=== PATIENT | female | born 2000 | race Caucasian/White ===

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

== ENCOUNTER 2022-08-11 13:34 | Emergency (ER) | payer OTHER ==
[~2022-08-11] VITALS: Ht 157.5 cm; Wt 90.7 kg
[2022-08-11] MEDS ORDERED: NS IV 1000 ML 1,000 ML IV STA (14:27)
--- NOTE | 2022-08-11 14:32 | ED General ---
General Chief Complaint: Dizziness/Syncope Stated Complaint: LIGHTHEADED | DIZZY | HEADACHE Nursing Triage Note: PT AMB TO RM 2 WITH COMPLAINT OF DIZZINESS, HEADACHE, AND PASSING OUT. STATES SHE WAS GETTING READY FOR WORK, GOT HOT, AND ACCORDING TO BOYFRIEND PASSED OUT. STATES SHE FELT NAUSEATED LAST NIGHT AND THIS MORNING. Source of Information: Patient Exam Limitations: No Limitations (ELISEO GARNICA) History of Present Illness Date Seen by Provider: Aug 11, 2022 Time Seen by Provider: 14:28 Initial Comments Patient is a 22-year-old female who presents to the ED for syncopal episode. Around 130 today she was getting ready for work, started feeling hot and breathing really fast and had a syncopal episode. She does not remember falling. According to her boyfriend who was at bedside at the time states patient collapsed on the bed. She remained "out of it" for 5 minutes. After that she was wanting water and she walked to the car. She states she has not been feeling well over the past 2 or 3 days. She also reports a right sided frontal head pain. Rates 8 out of 10. Denies worsening head pain. No history of migraines. Denies of any specific injury. Denies taking medication for headache. she states she has been feeling hot feeling shaky lightheaded. She reports body pain. Denies of any sore throat, ear pain, neck pain, fever, cough, vomiting, diarrhea, dysuria. Reports just getting off her menstrual cycle three weeks ago. Denies of any vaginal bleeding. she denies of any unilateral muscle weakness, visual changes. No history of seizures. According to her boyfriend patient appeared to be having may be a panic attack. Denies of any convulsions. She did not appear postictal. She did look pale right before she passed out. No known cardiac history or family history of sudden cardiac (ELISEO GARNICA) Allergies and Home Medications Allergies Coded Allergies: No Known Drug Allergies (Unverified , 08/13/21) Patient Home Medication List Home Medication List Reviewed: Yes (ELISEO GARNICA) Review of Systems Review of Systems Constitutional: No chills, No diaphoresis; malaise, weakness EENTM: No blurred vision, No double vision Respiratory: No cough, No dyspnea on exertion Cardiovascular: No chest pain, No edema Gastrointestinal: No abdominal pain, No diarrhea; nausea; No vomiting Genitourinary: No decreased output, No discharge, No dysuria, No frequency Musculoskeletal: No back pain, No joint pain Skin: No change in color, No change in hair/nails Psychiatric/Neurological: Headache (Headache), Other (Syncope) (ELISEO GARNICA) All Other Systems Reviewed Negative Unless Noted: Yes (ELISEO GARNICA) Past Bhsqzvl-Hbheno-Zfslvg Hx Patient Social History Tobacco Use?: No Use of E-Cig and/or Vaping dev: No Substance use?: No Alcohol Use?: No Pt feels they are or have been: No (ELISEO GARNICA) Past Medical History Surgeries: Yes (RIGHT KNEE ACL REPAIR) Orthopedic Respiratory: No Cardiac: No Neurological: No Reproductive Disorders: No Genitourinary: No Gastrointestinal: No Musculoskeletal: No Endocrine: No HEENT: No Cancer: No Psychosocial: No Integumentary: No Blood Disorders: No (ELISEO GARNICA) Physical Exam Vital Signs Vital Signs - First Documented 08/11/22 14:04 Temp 37.7 Pulse 82 Resp 24 B/P (MAP) 132/84 (100) Pulse Ox 99 O2 Delivery Room Air (LONG NGUYEN MD) Vital Signs Capillary Refill : Less Than 3 Seconds (ELISEO GARNICA) Height, Weight, BMI Height: '" Weight: lbs. oz. kg; 36.00 BMI Method: General Appearance: No Apparent Distress, WD/WN Eyes: Bilateral Eye Normal Inspection, Bilateral Eye PERRL, Bilateral Eye EOMI HEENT: PERRL/EOMI, TMs Normal, Normal ENT Inspection, Pharynx Normal Neck: Full Range of Motion, Normal Inspection, Non Tender, Supple Respiratory: Chest Non Tender, Lungs Clear, Normal Breath Sounds, No Accessory Muscle Use, No Respiratory Distress Cardiovascular: Regular Rate, Rhythm, No Edema, No Gallop, No JVD Gastrointestinal: Normal Bowel Sounds, No Organomegaly, No Pulsatile Mass, Non Tender Back: Normal Inspection, No CVA Tenderness Extremity: Normal Capillary Refill, Normal Inspection, Normal Range of Motion, Non Tender Neurologic/Psychiatric: Alert, Oriented x3, No Motor/Sensory Deficits, Normal Mood/Affect, vp medical II-XII Norm as Tested Skin: Normal Color, Warm/Dry (ELISEO GARNICA) Progress/Results/Core Measures Suspected Sepsis SIRS Temperature: Pulse: 82 Respiratory Rate: 24 Laboratory Tests 08/11/22 14:44: White Blood Count 8.2 Blood Pressure 132 /84 Mean: 100 Laboratory Tests 08/11/22 14:44: Creatinine 0.68, Platelet Count 344, Total Bilirubin 0.3 (ELISEO GARNICA) Results/Orders Lab Results Laboratory Tests Test 08/11/22 14:44 Range/Units White Blood Count 8.2 4.3-11.0 10^3/uL Red Blood Count 4.64 3.80-5.11 10^6/uL Hemoglobin 12.7 11.5-16.0 g/dL Hematocrit 38 35-52 % Mean Corpuscular Volume 83 80-99 fL Mean Corpuscular Hemoglobin 27 25-34 pg Mean Corpuscular Hemoglobin Concent 33 32-36 g/dL Red Cell Distribution Width 13.7 10.0-14.5 % Platelet Count 344 130-400 10^3/uL Mean Platelet Volume 9.5 9.0-12.2 fL Immature Granulocyte % (Auto) 0 % Neutrophils (%) (Auto) 65 42-75 % Lymphocytes (%) (Auto) 26 12-44 % Monocytes (%) (Auto) 7 0-12 % Eosinophils (%) (Auto) 2 0-10 % Basophils (%) (Auto) 0 0-10 % Neutrophils # (Auto) 5.4 1.8-7.8 10^3/uL Lymphocytes # (Auto) 2.1 1.0-4.0 10^3/uL Monocytes # (Auto) 0.6 0.0-1.0 10^3/uL Eosinophils # (Auto) 0.1 0.0-0.3 10^3/uL Basophils # (Auto) 0.0 0.0-0.1 10^3/uL Immature Granulocyte # (Auto) 0.0 0.0-0.1 10^3/uL Urine Color YELLOW Urine Clarity CLEAR Urine pH 7.0 5-9 Urine Specific [place] 1.010 L 1.016-1.022 Urine Protein NEGATIVE NEGATIVE Urine Glucose (UA) NEGATIVE NEGATIVE Urine Ketones NEGATIVE NEGATIVE Urine Nitrite NEGATIVE NEGATIVE Urine Bilirubin NEGATIVE NEGATIVE Urine Urobilinogen 0.2 < = 1.0 MG/DL Urine Leukocyte Esterase NEGATIVE NEGATIVE Urine RBC (Auto) NEGATIVE NEGATIVE Urine RBC NONE /HPF Urine WBC NONE /HPF Urine Squamous Epithelial Cells 10-25 H /HPF Urine Crystals NONE /LPF Urine Bacteria NEGATIVE /HPF Urine Casts NONE /LPF Urine Mucus NEGATIVE /LPF Urine Culture Indicated NO Urine Test POSITIVE NEGATIVE Sodium Level 135 135-145 MMOL/L Potassium Level 4.1 3.6-5.0 MMOL/L Chloride Level 106 98-107 MMOL/L Carbon Dioxide Level 22 21-32 MMOL/L Anion Gap 7 5-14 MMOL/L Blood Urea Nitrogen 9 7-18 MG/DL Creatinine 0.68 0.60-1.30 MG/DL Estimat Glomerular Filtration Rate 128 BUN/Creatinine Ratio 13 Glucose Level 98 70-105 MG/DL Calcium Level 9.3 8.5-10.1 MG/DL Corrected Calcium 9.4 8.5-10.1 MG/DL Total Bilirubin 0.3 0.1-1.0 MG/DL Aspartate Amino Transf (AST/SGOT) 12 5-34 U/L Alanine Aminotransferase (ALT/SGPT) 18 0-55 U/L Alkaline Phosphatase 65 40-136 U/L Total Protein 7.2 6.4-8.2 GM/DL Albumin 3.9 3.2-4.5 GM/DL Human Chorionic Gonadotropin, Quant [id number] H <5 MIU/ML (LONG NGUYEN MD) Medications Given in ED Current Medications Medications Dose Ordered Sig/Jewel Route Start Time Stop Time Status Last Admin Dose Admin Ketorolac Tromethamine 30 mg ONCE ONCE IVP 08/11/22 14:45 08/11/22 14:46 DC 08/11/22 15:18 30 MG (LONG NGUYEN MD) Vital Signs/I&O 08/11/22 08/11/22 08/11/22 14:04 15:36 16:10 Temp 37.7 Pulse 82 82 76 96 99 Resp 24 16 B/P (MAP) 132/84 (100) 142/84 (103) 138/94 135/87 (103) 138/94 (109) Pulse Ox 99 99 O2 Delivery Room Air Room Air (LONG NGUYEN MD) Vital Signs/I&O Capillary Refill : Less Than 3 Seconds (GARNICA,ELISEO A PA) Blood Pressure Mean: 100 ECG Comment Sinus rhythm, 82 bpm, QRS duration 101 MS, QTc 394 MS (ELISEO GARNICA) Departure Communication (PCP) Reviewed previous ER visits, H&P, lab testing. GCS 15. Alert and orient x3. No known cardiac history. Denies of any current chest pain but does report head pain. She reports not feeling over the past 2 or 3 days with headache. Patient denies of any vomiting. She does report nausea. Denies of any specific chest pain, abdominal pain, cough, sore throat, abd pain, urinary symptoms, fever. Patient was started on a liter of fluid and was given Toradol. Urinalysis with test but negative for infection. CBC, CMP and EKG was ordered. EKG showed normal sinus rhythm without evidence of arrhythmia. CBC, CMP grossly unremarkable. Urinalysis negative for infection positive for . Last menstrual cycle was July 25. She is G2, P1 with a live at home. She was not orthostatic hypotensive. She did receive a liter of fluid. She has no neurological red flag findings suggesting imaging of the head. Does not look like a seizure. Likely vasovagal syncope which may be result of hormonal changes. Patient feeling much better at this time. Patient with a steady gait. Head pain has improved. discussed Tylenol. Recommend staying hydrated. Recommend prenatals. Recommend following up with FORE[employer] LANGUAGES PROFESSOR for further evaluation. Beta quant 23,000. No vaginal bleeding or lower abdominal cramping. She has no abdominal tenderness. Patient vital signs stable. She is not tachycardic or hypoxic. (ELISEO GARNICA) Impression Primary Impression: Syncope Additional Impression: Disposition: HOME, SELF-CARE Condition: Stable Departure-Patient Inst. Decision time for Depature: 15:29 (ELISEO GARNICA) Referrals: [facility] [place],LOCAL PHYSICIAN (PCP) Primary Care Physician Patient Instructions: Vasovagal Response (DC) Add. Discharge Instructions: Recommend taking Tylenol for head pain. Recommend prenatals. Recommend following up with FORE[employer] LANGUAGES PROFESSOR. If worsening symptoms to return back to ED. Recomme nd staying hydrated. All discharge instructions reviewed with patient and/or family. Voiced understanding. ATTENDING PHYSICIAN NOTE: I was physically present as attending physician in the emergency department during the care of this patient, but I was not directly involved in the decision making or delivery of care for this patient. (LONG NGUYEN MD) ELISEO GARNICA Aug 11, 2022 14:32 LONG NGUYEN MD Aug 11, 2022 18:24
[2022-08-11] MEDS ORDERED: KETOROLAC 30 MG/ML VIAL IVP ONE (14:45)
[2022-08-11 14:54] LABS: BASOPHILS % (AUTO) 0 % (0-10); EOSINOPHILS # (AUTO) 0.1 10^3/uL (0.0-0.3); EOSINOPHILS % (AUTO) 2 % (0-10); HEMATOCRIT 38 % (35-52); HEMOGLOBIN 12.7 g/dL (11.5-16.0); LYMPHOCYTES # (AUTO) 2.1 10^3/uL (1.0-4.0); LYMPHOCYTES % (AUTO) 26 % (12-44); MEAN CORPUSCULAR HEMOGLOBIN 27 pg (25-34); MEAN CORPUSCULAR HGB CONC 33 g/dL (32-36); MEAN CORPUSCULAR VOLUME 83 fL (80-99); MEAN PLATELET VOLUME 9.5 fL (9.0-12.2); MONOCYTES # (AUTO) 0.6 10^3/uL (0.0-1.0); MONOCYTES % (AUTO) 7 % (0-12); NEUTROPHILS # (AUTO) 5.4 10^3/uL (1.8-7.8); NEUTROPHILS % (AUTO) 65 % (42-75); PLATELET COUNT 344 10^3/uL (130-400); WHITE BLOOD COUNT 8.2 10^3/uL (4.3-11.0)
[2022-08-11 14:55] LABS: BILIRUBIN,URINE NEGATIVE (NEGATIVE); CLARITY,URINE CLEAR; COLOR,URINE YELLOW; GLUCOSE, URINE (UA) NEGATIVE (NEGATIVE); KETONES,URINE NEGATIVE (NEGATIVE); LEUKOCYTE ESTERASE ,URINE NEGATIVE (NEGATIVE); NITRITE,URINE NEGATIVE (NEGATIVE); PROTEIN,URINE NEGATIVE (NEGATIVE)
[2022-08-11 15:03] LABS: BACTERIA,URINE NEGATIVE /HPF
[2022-08-11 15:08] LABS: ALBUMIN 3.9 GM/DL (3.2-4.5)
[2022-08-11 15:09] LABS: POTASSIUM 4.1 MMOL/L (3.6-5.0)
[2022-08-11 15:10] LABS: CALCIUM 9.3 MG/DL (8.5-10.1)
[2022-08-11 15:11] LABS: TOTAL PROTEIN 7.2 GM/DL (6.4-8.2)
[2022-08-11 15:13] LABS: BILIRUBIN,TOTAL 0.3 MG/DL (0.1-1.0)
[2022-08-11 15:15] LABS: CREATININE SERUM 0.68 MG/DL (0.60-1.30)
[2022-08-11 15:36] VITALS: BP_SYST 135; BP_SYST 138; BP_SYST 142; BP_DIAS 84; BP_DIAS 87; BP_DIAS 94
[2022-08-11 16:10] VITALS: BP 138/94
== END 2022-08-11 16:10 | disposition home or self-care (01) ==
LOC: EDUNIT# 13:34 → ER 13:36
DX: O99.411 Diseases of the circulatory system complicating pregnancy, first trimester (principal); I95.9 Hypotension, unspecified; Z3A.01 Less than 8 weeks gestation of pregnancy
CPT/HCPCS: 36415; 80053; 81000; 84702; 84703; 85025; 93005